=== PATIENT | female | born 1995 | race American Indian/Alaskan Native ===

== ENCOUNTER 2019-05-13 21:45 | Emergency (ER) | payer SELFPAY ==
[2019-05-13] MEDS ORDERED: DUONEB *Not for PRN Use IH ONE (21:55)
--- NOTE | 2019-05-13 21:55 | Emergency Department Report ---
Blank Doc - Documentation Documentation: 23-year-old female that presents with wheezing and cough. This initial assessment/diagnostic orders/clinical plan/treatment(s) is/are subject to change based on patient's health status, clinical progression and re- assessment by fellow clinical providers in the ED. Further treatment and workup at subsequent clinical providers discretion. Patient/guardians urged not to elope from the ED as their condition may be serious if not clinically assessed and managed. Initial orders include: 1- Patient sent to [facility] for further evaluation and treatment 2- breathing treatment 3- CXR
--- NOTE | 2019-05-13 23:19 | XRay Report ---
CHEST 2 VIEWS INDICATION / CLINICAL INFORMATION: wheezing. COMPARISON: None available. FINDINGS: SUPPORT DEVICES: None. HEART / MEDIASTINUM: No significant abnormality. LUNGS / PLEURA: No significant pulmonary or pleural abnormality. No pneumothorax. ADDITIONAL FINDINGS: No significant additional findings. IMPRESSION: 1. No acute findings. Signer Name: Kevin Traylor MD Signed: 05/13/2019 11:15 PM Workstation Name: [id number]
[2019-05-14] MEDS ORDERED: DELTASONE PO ONE (01:24)
--- NOTE | 2019-05-14 01:35 | Emergency Department Report ---
ED Shortness of Breath HPI - General Chief Complaint: Dyspnea/Respdistress Stated Complaint: ASTHMA/COUGH Time Seen by Provider: 05/13/19 21:54 Source: patient Mode of arrival: Ambulatory Limitations: No Limitations - History of Present Illness Initial Comments: 23-year-old -[place] female presents to the emergency room for asthma, shortness of breath, cough for 5 days. Patient does not use any albuterol. Patient states albuterol inhaler does not help her shortness of breathing. Patient reports that she usually uses a nebulizer machine but left it in [place]. Patient denies any fever chills. She does report chest tightness. She's been using hot tea's to help with her symptoms. Patient does have a history of hyper-thyroidism and has not taken any medication. MD Complaint: shortness of breath Onset/Timin -: days(s) Pain Scale: 0 Known History Of: asthma Context: recent travel Associated Symptoms: cough, sputum production - Related Data Previous Rx's Medication Instructions Recorded Last Taken Type ALBUTEROL Inhaler (OR & NICU) 2 puff IH QID PRN #1 inhalation 05/14/19 Unknown Rx [ProAir HFA Inhaler] methylPREDNISolone [Medrol 4MG 4 mg PO QDAY #1 tab.ds.pk 05/14/19 Unknown Rx DOSEPAK (21 tabs)] Allergies Allergy/AdvReac Type Severity Reaction Status Date / Time No Known Allergies Allergy Unverified 05/13/19 21:49 ED Review of Systems ROS: Stated complaint: ASTHMA/COUGH Other details as noted in HPI Comment: All other systems reviewed and negative Respiratory: cough, shortness of breath ED Past Medical Hx - Past Medical History Previous Medical History?: Yes Hx Asthma: Yes Additional medical history: Hyper thryroid - Surgical History Past Surgical History?: No - Social History Smoking Status: Never Smoker Substance Use Type: None - Medications Home Medications: Home Medications Medication Instructions Recorded Confirmed Last Taken Type ALBUTEROL Inhaler (OR & NICU) 2 puff IH QID PRN #1 inhalation 05/14/19 Unknown Rx [ProAir HFA Inhaler] methylPREDNISolone [Medrol 4MG 4 mg PO QDAY #1 tab.ds.pk 05/14/19 Unknown Rx DOSEPAK (21 tabs)] ED Physical Exam - General Limitations: No Limitations General appearance: alert, in no apparent distress - Head Head exam: Present: atraumatic, normocephalic - Eye Eye exam: Present: normal appearance - ENT ENT exam: Present: mucous membranes moist - Neck Neck exam: Present: normal inspection - Respiratory Respiratory exam: Present: normal lung sounds bilaterally. Absent: respiratory distress - Cardiovascular Cardiovascular Exam: Present: regular rate, normal rhythm. Absent: systolic m urmur, diastolic murmur, rubs, gallop - GI/Abdominal GI/Abdominal exam: Present: soft, normal bowel sounds - Extremities Exam Extremities exam: Present: normal inspection - Back Exam Back exam: Present: normal inspection - Neurological Exam Neurological exam: Present: alert, oriented X3 - Psychiatric Psychiatric exam: Present: normal affect, normal mood - Skin Skin exam: Present: warm, dry, intact, normal color. Absent: rash ED Course Vital Signs 05/13/19 05/13/19 21:49 21:54 Temperature 99.4 F 98.5 F Pulse Rate 96 H 97 H Respiratory 14 18 Rate Blood Pressure 126/71 126/71 O2 Sat by Pulse 95 95 Oximetry ED Medical Decision Making - Radiology Data Radiology results: report reviewed Patient: RAFAELA ZHANG MR#: [id number] : 1995 Acct:[id number] Age/Sex: 23 / F ADM Date: 05/13/19 Loc: ED Attending Dr: Ordering Physician: DARIO RIOS NP Date of Service: 05/13/19 Procedure(s): XR chest routine 2V Accession Number(s): [id number] cc: DARIO RIOS NP Fluoro Time In Minutes: CHEST 2 VIEWS INDICATION / CLINICAL INFORMATION: wheezing. COMPARISON: None available. FINDINGS: SUPPORT DEVICES: None. HEART / MEDIASTINUM: No significant abnormality. LUNGS / PLEURA: No significant pulmonary or pleural abnormality. No pneumothorax. ADDITIONAL FINDINGS: No significant additional findings. IMPRESSION: 1. No acute findings. Signer Name: Kevin Traylor MD Signed: 05/13/2019 11:15 PM Workstation Name: [id number] Transcribed By: TL Dictated By: Kevin Traylor MD Electronically Authenticated By: Kevin Traylor MD Signed Date/Time: 05/13/192314 DD/ 14 TD/TT: - Medical Decision Making 23-year-old -[place] female presents to the emergency room for asthma, shortness of breath, cough for 5 days. Patient does not use any albuterol. Patient states albuterol inhaler does not help her shortness of breathing. Patient reports that she usually uses a nebulizer machine but left it in [place]. Patient denies any fever chills. She does report chest tightness. She's been using hot tea's to help with her symptoms. Patient does have a history of hyper-thyroidism and has not taken any medication. Patient was given DuoNeb in triage. Patient be given prednisone 40 mg by mouth. Chest x-ray is negative for any acute abnormalities. Patient be discharged home on prednisone and albuterol inhaler. Critical care attestation.: If time is entered above; I have spent that time in minutes in the direct care of this critically ill patient, excluding procedure time. ED Disposition Clinical Impression: Asthma Qualifiers: Asthma severity: unspecified severity Asthma persistence: unspecified Asthma complication type: with status asthmaticus Qualified Code(s): J45.902 - Unspecified asthma with status asthmaticus Disposition: DC-01 TO HOME OR SELFCARE Is pt being admited?: No Does the pt Need Aspirin: No Condition: Stable Instructions: Asthma (ED) Additional Instructions: Take prednisone as prescribed. Use inhaler as needed for shortness of breath and cough. Follow up with her primary care provider if his symptoms persist or gets worse. Prescriptions: methylPREDNISolone [Medrol 4MG DOSEPAK (21 tabs)] 4 mg PO QDAY #1 tab.ds.pk ALBUTEROL Inhaler (OR & NICU) [ProAir HFA Inhaler] 2 puff IH QID PRN #1 inhalation PRN Reason: Shortness Of Breath Referrals: PRIMARY CARE, [Primary Care Provider] - 3-5 Days
[2019-05-14 03:05] VITALS: BP 122/68
== END 2019-05-14 02:00 | disposition home or self-care (01) ==
LOC: ED 21:45
DX: J45.909 Unspecified asthma, uncomplicated (principal)
CPT/HCPCS: 71046; J7512